=== PATIENT | male | born 1940 | race Caucasian/White ===

== ENCOUNTER 2017-10-29 16:05 | Outpatient (CLI) | payer MEDICARE ==
--- NOTE | 2017-10-29 16:21 | RAD ---
CHEST 2 VIEWS: HISTORY: CHF. Dyspnea. Chest pain. COMPARISON: 10/29/17. FINDINGS: Cardiac silhouette is enlarged. Dystrophic calcification overlies the left lateral pericardium. Pul monary vasculature is upper limits of normal. Patchy bibasilar infiltrates are present, left greater than right. Blunting of the left lateral costophrenic angle has the appearance of a small amount of pleural fluid. Linear parenchymal opacity projects over the lateral aspect of the left chest. IMPRESSION: 1. Cardiomegaly. In addition to mild pulmonary vascular congestion, there is added parenchymal opac ity and pleural fluid at the left base. Clinical correlation regarding other signs and symptoms of l eft basilar pneumonitis is required. Continued radiographic followup is suggested after medial treat ment. 2. Restrictive pericarditis. POS: [facility]
== END 2017-10-29 16:06 | disposition home or self-care (01) ==
LOC: RAD-FRANK 16:05
PROVIDERS: ATTEND Nurse Practitioner Family
DX: I50.9 Heart failure, unspecified (principal); R60.9 Edema, unspecified; I51.7 Cardiomegaly; J98.4 Other disorders of lung; I31.9 Disease of pericardium, unspecified
CPT/HCPCS: 71046